=== PATIENT | female | born 1980 ===

== ENCOUNTER 2023-12-18 10:00 | Inpatient (IN) | payer OTHER ==
[~2023-12-18] VITALS: Ht 167.6 cm; Wt 78.9 kg
[2023-12-25] MEDS ORDERED: CEFAZOLIN SODIUM 1,000 MG VIAL ONE ×2 (08:20→13:02)
[2023-12-25] MEDS ORDERED: POVIDONE-IODINE 118 ML BOTT TOP ONE ×2 (08:20→09:30)
[2023-12-25] MEDS ORDERED: CEFAZOLIN SODIUM 1,000 MG VIAL IV ONE (09:30)
[2023-12-25] MEDS ORDERED: SUGAMMADEX SODIUM 200 MG/2 ML VIAL IV ONE ×2 (10:15→10:53)
[2023-12-25] MEDS ORDERED: MORPHINE SULFATE 4 MG/ML VIAL IV PRN (10:30)
[2023-12-25] MEDS ORDERED: ONDANSETRON HCL 2 MG/ML VIAL IV PRN (10:45)
[2023-12-25] MEDS ORDERED: RINGERS SOLUTION,LACTATED 1,000 ML IV SCH (10:45)
[2023-12-25] MEDS ORDERED: MORPHINE SULFATE 4 MG/ML VIAL IV ONE ×2 (11:05→11:35)
[2023-12-25] MEDS ORDERED: ONDANSETRON HCL 2 MG/ML VIAL ONE (11:18)
[2023-12-25] MEDS ORDERED: ONDANSETRON HCL 2 MG/ML VIAL IV ONE (11:20)
[2023-12-25] MEDS ORDERED: MORPHINE SULFATE 4 MG,MORPHINE SULFATE 2 MG IV PRN (11:30)
[2023-12-25] MEDS ORDERED: CEFAZOLIN SODIUM 1,000 MG VIAL IV SCH (12:00)
[2023-12-25] MEDS ORDERED: ENALAPRILAT DIHYDRATE 1.25 MG/ML VIAL IV ONE ×2 (13:20→13:50)
[2023-12-25 13:27] LABS: HEMATOCRIT 36.7 % (36.0-45.00); HEMOGLOBIN 12.1 g/dL (12.0-15.00); MEAN CELL VOLUME 84.5 fL (80.00-100.00); MEAN CORPUSCULAR HEMOGLOBIN 27.8 pg (27.00-32.0); MEAN CORPUSCULAR HGB CONC 32.9 g/dl (32.0-36.0); PLATELET COUNT 292 K/uL (150-450); RED BLOOD COUNT 4.34 M/uL (4.00-6.00)
[2023-12-25] MEDS ORDERED: hydrALAZINE HCL 20 MG VIAL ONE (14:49)
[2023-12-26] MEDS ORDERED: IBUprofen 800 MG TABLET PO SCH (08:00)
[2023-12-26] MEDS ORDERED: GABAPENTIN 300 MG CAPSULE PO SCH (09:00)
[2023-12-26] MEDS ORDERED: POLYETHYLENE GLYCOL 3350 17 GM BLIST.PACK PO SCH (09:00)
[2023-12-26] MEDS ORDERED: ENOXAPARIN SODIUM 40 MG/0.4 ML SYRINGE SUBCUTANEO SCH (09:00)
[2023-12-26] MEDS ORDERED: SIMETHICONE 125 MG CAPSULE PO SCH (09:00)
[2023-12-26] MEDS ORDERED: KETOROLAC TROMETHAMINE 60 MG VIAL IM STA (09:43)
[2023-12-27] MEDS ORDERED: GABAPENTIN300 MG PO (06:28)
[2023-12-27] MEDS ORDERED: IBUPROFEN800 MG PO (06:28)
[2023-12-27] MEDS ORDERED: ENALAPRILAT DIHYDRATE 1.25 MG/ML VIAL IV PRN (10:15)
[2023-12-27] MEDS ORDERED: OxyCODONE HCL/APAP UD (PERCOCET) PO SCH (12:00)
[2023-12-27 23:18] LABS: HEMATOCRIT 35.1 % (36.0-45.00); HEMOGLOBIN 11.7 g/dL (12.0-15.00); MEAN CELL VOLUME 87.2 fL (80.00-100.00); MEAN CORPUSCULAR HGB CONC 33.3 g/dl (32.0-36.0); PLATELET COUNT 274 K/uL (150-450); RED BLOOD COUNT 4.03 M/uL (4.00-6.00); RED CELL DISTRIBUTION WIDTH 23.3 % (11.5-14.5)
[2023-12-28] MEDS ORDERED: OXYC1TAB9 PO (07:06)
[2023-12-28] MEDS ORDERED: ENALAPRIL MALE2.5 MG PO (07:06)
== END 2023-12-28 11:53 | disposition home or self-care (01) | DRG 743 ==
LOC: SURH 12-22 10:00 → O/R 12-25 06:00 → SURH 12-25 07:00 → OB/GYN 12-25 12:29
PROVIDERS: ADMIT Obstetrics & Gynecology Gynecology; ATTEND Obstetrics & Gynecology Gynecology
PROC: 0UT90ZZ Resection of Uterus, Open Approach (ICD-10-PCS; principal; 2023-12-25 07:00)
DX: D25.1 Intramural leiomyoma of uterus (principal); D25.2 Subserosal leiomyoma of uterus; Z20.822 Contact with and (suspected) exposure to COVID-19